=== PATIENT | female | born 1995 | race Caucasian/White ===

== ENCOUNTER 2020-03-13 12:15 | Observation (INO) | payer OTHER ==
[~2020-03-13 12:15] MED LIST: OMEP20 PO
[2020-03-13 13:12] VITALS: BP 109/52
[2020-03-13] MEDS ORDERED: PREN-217 PO (13:14)
== END 2020-03-13 15:10 | disposition home or self-care (01) ==
LOC: 4S 12:15
PROVIDERS: ADMIT Obstetrics & Gynecology; ATTEND Obstetrics & Gynecology
DX: O62.9 Abnormality of forces of labor, unspecified (principal); O60.03 Preterm labor without delivery, third trimester; Z90.49 Acquired absence of other specified parts of digestive tract; Z3A.28 28 weeks gestation of pregnancy
CPT/HCPCS: 59025; 76811; 81001; G0378

== ENCOUNTER 2020-05-07 16:53 | Observation (INO) | payer OTHER ==
[~2020-05-07] VITALS: Ht 157.5 cm; Wt 59.0 kg
[~2020-05-07 16:53] MED LIST changes: -OMEP20 PO; +PREN-217 PO
[2020-05-07] MEDS ORDERED: DEXTROSE 5%-LACTATED RINGERS 1,000 ML IV ONE (19:00)
[2020-05-07 22:03] VITALS: BP 119/59
== END 2020-05-07 21:50 | disposition home or self-care (01) ==
LOC: 4S 16:53
PROVIDERS: ADMIT Obstetrics & Gynecology; ATTEND Obstetrics & Gynecology
DX: O36.8330 Maternal care for abnormalities of the fetal heart rate or rhythm, third trimester, not applicable or unspecified (principal); Z3A.36 36 weeks gestation of pregnancy
CPT/HCPCS: 59025; 76811; 81002; G0378; X7700

== ENCOUNTER 2021-03-16 17:31 | Observation (INO) | payer OTHER ==
[~2021-03-16] VITALS: Ht 157.5 cm; Wt 62.6 kg
[2021-03-16 19:50] VITALS: BP 116/59
== END 2021-03-16 20:47 | disposition home or self-care (01) ==
LOC: 4S 17:55
PROVIDERS: ADMIT Obstetrics & Gynecology; ATTEND Obstetrics & Gynecology
DX: O46.92 Antepartum hemorrhage, unspecified, second trimester (principal); O26.892 Other specified pregnancy related conditions, second trimester; R10.9 Unspecified abdominal pain; Z3A.21 21 weeks gestation of pregnancy
CPT/HCPCS: 59025; 76805; 81001; 99219

== ENCOUNTER 2025-07-04 11:16 | Emergency (ER) | payer OTHER ==
[~2025-07-04] VITALS: Ht 157.5 cm; Wt 56.4 kg
[2025-07-04 11:20] VITALS: BP 130/86; PULSE 91; RESP 18; TEMP 98.1; O2SAT 99
[2025-07-04 11:39] LABS: COVID AG,FIA SOURCE NASAL SWAB
[2025-07-04] MEDS: ACETAMINOPHEN 325 MG TABLET PO ONE (12:19)
[2025-07-04 12:21] LABS: INFLUENZA TYPE A NEGATIVE FOR TYPE A (NEGATIVE); INFLUENZA TYPE B NEGATIVE FOR TYPE B (NEGATIVE)
[2025-07-04 12:29] LABS: SARS-COV2 (COVID) ANTIGEN,FIA Positive (Negative)
[2025-07-04] MEDS ORDERED: ACET-2247 PO (12:57)
== END 2025-07-04 13:12 | disposition home or self-care (01) ==
LOC: EMS 11:18
DX: U07.1 COVID-19 (principal); R05.9 Cough, unspecified; R09.81 Nasal congestion; R53.81 Other malaise; Z90.89 Acquired absence of other organs; Z79.899 Other long term (current) drug therapy
CPT/HCPCS: 87804; 99283